=== PATIENT | female | born 1955 | race Caucasian/White ===

== ENCOUNTER → 2016-11-10 | Day surgery (SDC) | payer OTHER ==
[~2016-11-10] VITALS: Ht 170.2 cm; Wt 80.0 kg
[~2016-11-10] MED LIST: ACETAMINOPHEN 1000 MG/100 ML VIAL IV ONE; BUPIVACAINE HCL PF 0.5% 30 ML VIAL ONE; CHOL5000 PO; LACTATED RINGER'S 1000 ML INJ 1,000 ML ONE; MIDAZOLAM HCL 2 MG/2 ML VIAL ONE; MULT1TAB84 PO; ONDANSETRON HCL 4 MG/2 ML VIAL IV PUSH ONE; ONDANSETRON HCL 4 MG/2 ML VIAL ONE; PROPOFOL 200 MG/20 ML AMP IV ONE; ceFAZolin 2 GM PREMIX 50 ML ONE
[2016-11-10 09:45] VITALS: BP 110/68; PULSE 63; RESP 16; TEMP 98.4; O2SAT 99
[2016-11-10 12:45] VITALS: BP 100/57; PULSE 62; RESP 16; TEMP 98.8; O2SAT 100
--- NOTE | 2016-11-11 07:08 | MP ---
cc: LAURA DALOTN DATE OF SURGERY 11/10/2016 PRINCIPAL DIAGNOSIS Palpable large left breast mass. POSTOPERATIVE DIAGNOSIS Palpable large left breast mass. PROCEDURE PERFORMED Excisional biopsy of large palpable left breast mass. SURGEON Laura Dalton MD ANESTHESIA TIVA INDICATION The patient is a 61-year-old female who has an enlarging palpable left breast mass. Prior biopsy demonstrated fibroadenoma, but the mass is now 5 cm in size and is quite symptomatic. The patient now presents for excision. FINDINGS AT THE TIME OF SURGERY A mildly lobulated firm large 4 x 5 cm left breast mass was identified. It did not appear adherent to surrounding structures. PROCEDURE PERFORMED After informed consent was obtained and site verification was performed, the patient was brought to the major operating room where she underwent IV sedation. The left breast was prepped and draped in a sterile fashion. An incision was anesthetized at the medial inframammary crease for a lesion located at 7 o'clock 4 cm from the nipple. The left breast was prepped and draped in sterile fashion and she was given a single dose of IV Ancef and sequential compression hose were placed. The inframammary crease incision was anesthetized with 1% lidocaine plain and both sharp and electrocautery dissection were then used to dissect up to the level of the lower inner quadrant lesion. Blunt, sharp, and electrocautery dissection were then performed circumferentially around the mass. The specimen was oriented with two sutures inferiorly, one short suture anteriorly, and one long suture laterally. The specimen was sent for permanent pathologic evaluation. Hemostasis was easily obtained with electrocautery and the wound was closed using interrupted 3-0 Vicryl subcutaneous sutures and a 4-0 Monocryl subcuticular suture. Steri-Strips and sterile dressing were applied. The patient tolerated the procedure well with minimal blood loss and she was extubated in the operating room and brought to the recovery room in good condition. All sponge and needle counts were correct at the conclusion of the case. MD STALIN Hamilton/DORI /12:04 PM /6:55 AM
== END | disposition home or self-care (01) ==
LOC: CSDC 08:45
PROVIDERS: ATTEND Surgery
DX: N63 Unspecified lump in breast (principal)
CPT/HCPCS: 00400; 19120; 88307; J0131; J0690; J2250; J2405; J3010; J7120